=== PATIENT | female | born 1960 | race African-American/Black ===

== ENCOUNTER 2023-01-21 09:34 | Day surgery (SDC) | payer OTHER ==
[2023-01-20 12:24] VITALS: BMI 30.8
[2023-01-21 11:27] VITALS: RESP 20; TEMP 97
[2023-01-21 11:30] VITALS: BP 112/60; PULSE 72
== END 2023-01-21 11:30 | disposition home or self-care (01) ==
LOC: FASU-ENDO 09:34
PROVIDERS: ATTEND Internal Medicine Gastroenterology
PROC: 0DJD8ZZ Inspection of Lower Intestinal Tract, Via Natural or Artificial Opening Endoscopic (ICD-10-PCS; principal; 2023-01-21 10:30)
DX: Z12.11 Encounter for screening for malignant neoplasm of colon (principal)